=== PATIENT | female | born 1990 | race Two or more races ===

== ENCOUNTER 2025-03-10 08:49 | Outpatient (CLI) | payer BC | END 2025-03-10 08:50 | disposition home or self-care (01) | LOC: MRI 08:49 | PROVIDERS: ATTEND Internal Medicine Gastroenterology | DX: Z15.09 Genetic susceptibility to other malignant neoplasm (principal); Z80.0 Family history of malignant neoplasm of digestive organs | CPT/HCPCS: 74183; 76376 ==